=== PATIENT | male | born 1965 | race Caucasian/White ===

== ENCOUNTER 2018-01-14 11:20 | Emergency (ER) | payer OTHER ==
[2018-01-14 11:23] VITALS: BP 122/70; TEMP 97.3; BMI 35.8
[2018-01-14] MEDS ORDERED: LIDOCAINE HCL 1% SDV SUBCUT STA (11:37)
--- NOTE | 2018-01-14 12:05 | DI ---
EXAM: Left finger second digit three-view HISTORY: Foreign body COMPARISON: None FINDINGS/IMPRESSION: Marked focal soft tissue prominence/swelling about the anterior/radial aspect o f the second digit at the level of the middle phalanx. No fracture, dislocation, or radiopaque forei gn body identified.
--- NOTE | 2018-01-14 12:18 | ED.PDOC ---
General ED Provider: Dr. WINSOME CORONA Chief Complaint: Finger Pain/Injury Stated Complaint: PUSTULE LEFT SECOND FINGER Time Seen by Physician: 11:30 (SEE PHOTOS) Mode of Arrival: Walk-In Information Source: Patient Exam Limitations: No limitations Nursing and Triage Documentation Reviewed and Agree: Yes Does patient meet sepsis criteria?: Yes If yes, has appropriate treatment been initiated?: No System Inflammatory Response Syndrome: Not Applicable Sepsis Protocol: For patient's 13 years and over: Temp is 96.8 and below OR 101 and greater Pulse >90 BPM Resp >20/minute Acutely Altered Mental Status Are patient's symptoms suggestive of a new infection, such as: -Pneumonia -Skin, Soft Tissue -Endocarditis -UTI -Bone, Joint Infection -Implantable Device -Acute Abdominal Infection -Wound Infection -Meningitis -Blood Stream Catheter Infection -Unknown Musculoskeletal Complaint Exam - Hand/Wrist Complaint/Exam Location of Pain: Reports: Left, Hand, Digit #2 Mechanism of Injury: Reports: No known trauma, Other (PUSTULE LEFT SECOND FINGER ) Onset/Duration: CHRONIC PT HAS BEEN POPING IT SQUEEZING PUS OUT OF IT Symptoms Are: Still present Onset of Pain: Reports: Weeks Initial Severity: Moderate Current Severity: Moderate Location: Reports: Discrete (SEE PHOTOS) Character: Reports: Dull Alleviating: Reports: Rest Aggravating: Reports: None Associated Signs and Symptoms: Reports: Swelling, Redness. Denies: Bruising, Fever, Weakness, Numbness, Tingling Related History: Reports: Similar episode Dominant Hand: Right Related Surgical History: Reports: None Hand/Wrist Findings: Present: Swelling Differential Diagnoses: Other (PUSTULE LEFT FINGER ) Review of Systems - Review Of Systems Constitutional: Reports: No symptoms Eyes: Reports: No symptoms Ears, Nose, Mouth, Throat: Reports: No symptoms Respiratory: Reports: No symptoms Cardiac: Reports: No symptoms GI: Reports: No symptoms : Reports: No symptoms Musculoskeletal: Reports: No symptoms Skin: Reports: Other (PUSTULE LEFT SECOND FINGER ) Neurological: Reports: No symptoms Endocrine: Reports: No symptoms Hematologic/Lymphatic: Reports: No symptoms All Other Systems: Reviewed and Negative Past Medical History - Past Medical History Previously Healthy: Yes Endocrine: Reports: Hypothyroid Cardiovascular: Reports: Hypertension, DVT (CLOTT VENA CVA,PTSD) Respiratory: Reports: COPD ((smokes 10 cigars a day)) Hematological: Reports: None Gastrointestinal: Reports: None Genitourinary: Reports: None Neuro/Psych: Reports: CVA, Depression, Bipolar Disorder, PTSD Musculoskeletal: Reports: None Cancer: Reports: None - Surgical History General Surgical History: Reports: Appendectomy, Cholecystectomy, Orthopedic ( CARPAL TUNNEL BOTH HAND), Other (PFO REPAIR, PANCREATIC SURGERY) - Family History Family History: Reports: None - Social History Smoking Status: Current every day smoker Hx Substance Use: No Alcohol Screening: Occasionally Physical Exam - Physical Exam Appearance: Well-appearing, No pain distress, Well-nourished Eyes: TOBY, EOMI, Conjunctiva clear ENT: Ears normal, Nose normal, Oropharynx normal Respiratory: Airway patent, Breath sounds clear, Breath sounds equal, Respirations nonlabored Cardiovascular: RRR, Pulses normal, No rub, No murmur GI/: Soft, Nontender, No masses, Bowel sounds normal, No Organomegaly Musculoskeletal: Normal strength, ROM intact, No edema, No calf tenderness Skin: Warm, Dry ([id number] PUSTULE SEE PHOTOS OF THE FINGER LEFT SECOND) Neurological: Sensation intact, Motor intact, Reflexes intact, Cranial nerves intact, Alert, Oriented Psychiatric: Affect appropriate, Mood appropriate Procedures - Incision and Drainage Site: LEFT SECOND FINGER Instrument Used: 11 Blade I & D Procedure: Yes: Betadine Prep, Sterile drapes applied Lidocaine Used: Yes (1ML PLAIN) Type of Drainage: Present: Pus, Blood Irrigated: Yes Progress: PHOTOS OF THE FINGER SUBMITTED Critical Care Note - Critical Care Note Total Time (mins): 0 Course - Course Orders, Labs, Meds: Orders Category Date Time Status WOUND CULTURE Stat LAB 01/14/18 12:04 Ordered Lidocaine HCl/Pf [Lidocaine HCl 1% Sdv] MEDS 01/14/18 11:37 Discontinued 5 ml SUBCUT ONCE STA FINGER(S), LEFT MIN 2V Stat RADS 01/14/18 11:36 Completed Medications Discontinued Medications Generic Name Dose Route Start Last Admin Trade Name Freq PRN Reason Stop Dose Admin Lidocaine HCl 5 ml 01/14/18 11:37 Lidocaine Hcl 1% Sdv SUBCUT 01/14/18 11:38 ONCE STA Vital Signs: Temp Pulse Resp BP Pulse Ox 01/14/18 11:20 97.3 F L 88 18 122/70 95 Departure - Departure Time of Disposition: 12:19 (WOUND I/D AND PACKED WITH NONIODOFORM PACKING ) Disposition: HOME SELF-CARE Discharge Problem: Injury of finger, Pain in finger, Abscess Instructions: Abscess (ED) Condition: Good Pt referred to PMD for follow-up: Yes IPMP verified?: No Additional Instructions: Please call your Family Physician as soon as possible to schedule a follow-up appointment. Prescriptions: Amoxicillin 500 mg PO Q8HR #21 tablet Hydrocodone/Acetaminophen [[place] 10-325 Tablet] 1 each PO Q8HR #12 tablet Allergies/Adverse Reactions: Allergies No Known Allergies Allergy (Verified 01/14/18 11:24) Home Medications: Ambulatory Orders Aripiprazole [Abilify] 30 mg PO BEDTIME 07/09/13 Citalopram Hydrobromide [Citalopram HBr] 40 mg PO BEDTIME 07/09/13 Lisinopril 20 mg PO DAILY 07/09/13 Methylphenidate HCl [Methylphenidate LA] 20 mg PO QID 11/16/14 Clonazepam 0.5 mg PO QID #120 12/09/15 Lamotrigine [Lamictal] 150 mg PO BEDTIME #120 12/09/15 Zolpidem Tartrate [Ambien] 10 mg PO BEDTIME #30 12/09/15 Amoxicillin 500 mg PO Q8HR #21 tablet 01/14/18 Hydrocodone/Acetaminophen [[place] 10-325 Tablet] 1 each PO Q8HR #12 tablet
== END 2018-01-14 12:32 | disposition home or self-care (01) ==
LOC: ED 11:20
DX: L02.512 Cutaneous abscess of left hand (principal); F17.210 Nicotine dependence, cigarettes, uncomplicated
CPT/HCPCS: 87070; 87186; 99283